=== PATIENT | male | born 1990 | race Asian ===

== ENCOUNTER 2025-04-14 12:04 | Emergency (ER) | payer OTHER, SELFPAY ==
[2025-04-14 12:10] VITALS: BP 129/74; PULSE 68; RESP 13; TEMP 36.3; O2SAT 100; BMI 25.1
--- NOTE | 2025-04-14 12:25 | DI.RAD.S_ITS ---
PROCEDURE: XR HAND RT MIN 3V INDICATIONS: injury TECHNIQUE: 3 views of the hand(s) acquired. COMPARISON: None. FINDINGS: Bones: No fractures or dislocations. Carpal bones are normally aligned. No suspicious bony lesions. Soft tissues: Generalized soft tissue swelling is seen. IMPRESSION: Soft tissue swelling is seen, without an acute bony abnormality seen by plain film. If there is point tenderness (or other clinical suspicion for a fracture not seen on these images) then a dedicated CT or a short-term followup plain film series could be considered for further evaluation, as clinically appropriate. Dictated by: Andrei Biggs M.D. on 04/14/2025 at 12:09 Approved by: Andrei Biggs M.D. on 04/14/2025 at 12:10
[2025-04-14] MEDS: TET,DIPH,PERTUSS(ACELL),VAC/PF 0.5 ML SYRINGE IM (12:38)
[2025-04-14] MEDS: LIDOCAINE 2% W/EPI INJ 10 ML VIAL INJ (13:38)
--- NOTE | 2025-04-14 13:56 | ED.WOUNDLAC ---
HPI - Wound/Laceration <Xiomy Peters PA-C - Last Filed: 04/14/25 15:16> General Chief Complaint: Wound/Laceration Stated Complaint: Rt hand laceration Time Seen by Provider: 04/14/25 12:25 Source: patient Mode of arrival: Ambulatory History of Present Illness HPI narrative: 34-year-old male presents to the ED with a right knuckle injury sustained accidentally when operating a cutting wheel. The cutting wire had plastic in it. Patient is complaining of pain at the site of injury. No numbness, tingling, weakness. Patient has full range of motion. Bleeding is controlled with pressure. Tetanus is not up-to-date. Related Data Allergies Allergy/AdvReac Type Severity Reaction Status Date / Time No Known Drug Allergies Allergy Verified 04/14/25 12:14 Review of Systems <Xiomy Peters PA-C - Last Filed: 04/14/25 15:16> Constitutional Constitutional: Denies chills, Denies fatigue, Denies fever(s), Denies frequent falls, Denies lethargy and Denies weakness Eyes Eyes: Denies change in vision, Denies eye discharge, Denies irritation and Denies loss of vision ENT Ears, Nose, Mouth, and Throat: Denies change in voice, Denies dizziness, Denies neck pain, Denies sore throat and Denies throat swelling Cardiovascular Cardiovascular: Denies chest pain, Denies irregular heart rhythm, Denies lightheadedness, Denies palpitations, Denies dyspnea, Denies dyspnea on exertion and Denies orthopnea Respiratory Respiratory: Denies cough, Denies dyspnea, Denies dyspnea on exertion and Denies wheezing Gastrointestinal Gastrointestinal: Denies abdominal pain, Denies change in bowel habits, Denies diarrhea, Denies nausea and Denies vomiting Musculoskeletal Musculoskeletal: Denies neck pain and Denies numbness Integumentary/Breasts Skin/Breast: Denies pruritus, Denies erythema, Denies rash and Reports wounds Neurologic Neurologic: Denies behavioral changes, Denies confusion, Denies dizziness, Denies frequent falls, Denies loss of vision, Denies numbness and Denies weakness Psychiatric Psychiatric: Denies anxiety, Denies behavioral changes, Denies confusion, Denies depression, Denies homicidal ideation and Denies suicidal ideation Endocrine Endocrine: Denies fatigue, Denies flushing and Denies palpitations Hematologic/Lymphatic Hematologic/Lymphatic: Denies easy bruising Allergic/Immunologic Allergic/Immunologic: Denies urticaria, Denies throat swelling and Denies wheezing Patient History <Xiomy Peters PA-C - Last Filed: 04/14/25 15:16> Social History Smoking Status: Unknown if ever smoked Smoking Status: Unknown if ever smoked Exam <Xiomy Peters PA-C - Last Filed: 04/14/25 15:16> Narrative Exam Narrative: Const General:?cooperative, healthy appearing and comfortable [facility] Head:?normal to inspection Ears:?hearing grossly normal bilaterally Nose:?external nose normal Face and sinus:?normal facial exam and sinuses nontender Mouth:?oral mucosae normal Throat:?posterior oropharynx normal Eyes General:?appearance normal, both eyes and all related structures Neck Neck:?normal visual inspection and no lymphadenopathy noted Resp Effort & Inspection:?normal respiratory effort Auscultation:?clear to auscultation bilaterally Cardio Rate:?regular rate Rhythm:?regular rhythm Integumentary There is a 1 cm linear laceration to the dorsal aspect of the right hand proximal to the 2nd MCP joint. Bleeding is controlled with pressure. There is some residue of the plastic at the edges of the laceration. No deeper structures injured Neuro General:?patient alert, patient awake and patient oriented x3 Initial Vital Signs Initial Vital Signs: Vital Signs Temperature 97.4 F L 04/14/25 12:10 Pulse Rate 68 04/14/25 12:10 Respiratory Rate 13 04/14/25 12:10 Blood Pressure 129/74 04/14/25 12:10 Pulse Oximetry 100 04/14/25 12:10 Oxygen Delivery Method Room Air 04/14/25 12:10 <Keaton Manzo MD - Last Filed: 04/14/25 19:13> Initial Vital Signs Initial Vital Signs: Vital Signs Temperature 97.4 F L 04/14/25 12:10 Pulse Rate 68 04/14/25 12:10 Respiratory Rate 13 04/14/25 12:10 Blood Pressure 129/74 04/14/25 12:10 Pulse Oximetry 100 04/14/25 12:10 Oxygen Delivery Method Room Air 04/14/25 12:10 Procedures <Xiomy Peters PA-C - Last Filed: 04/14/25 15:16> Laceration Repair Laceration 1: Site: hand Side (If applicable): right Size (cm): 1 Description: linear Depth: simple, single layer Local Anesthetic: lidocaine 2% and with epi Amount of anesthesia used (mL): 0.75 Pre-repair: wound explored, irrigated extensively (Plastic residue removed from the edges of the laceration) and deep structures intact Skin layer closed with: nylon Skin layer suture size: 5-0 Number of sutures: 3 Technique: simple, interrupted Course <Xiomy Peters PA-C - Last Filed: 04/14/25 15:16> Orders Ordered: ED Orders 04/14/25 12:25 XR hand RT min 3V Stat Discontinued Medications Diphtheria/Tetanus/Acell Pertussis (Tet,Diph,Pertuss(Acell),Vac/Pf 0.5 Ml Syringe) 0.5 ml IM .ONCE ONE Stop: 04/14/25 12:27 Last Admin: 04/14/25 12:38 Dose: 0.5 ml Documented By: LM Lidocaine/Epinephrine (Lidocaine 2% W/Epi Inj 10 Ml Vial) 10 ml INJ NOW ONE Stop: 04/14/25 13:35 Last Admin: 04/14/25 13:38 Dose: 10 ml Documented By: DKB Vital Signs Vital signs: Vital Signs - 8 hr 04/14/25 12:10 04/14/25 15:21 Temperature 97.4 F L Pulse Rate 68 65 Respiratory Rate 13 14 Blood Pressure 129/74 125/73 Pulse Oximetry 100 99 Oxygen Delivery Method Room Air Room Air <Keaton Manzo MD - Last Filed: 04/14/25 19:13> Orders Ordered: ED Orders 04/14/25 12:25 XR hand RT min 3V Stat Discontinued Medications Diphtheria/Tetanus/Acell Pertussis (Tet,Diph,Pertuss(Acell),Vac/Pf 0.5 Ml Syringe) 0.5 ml IM .ONCE ONE Stop: 04/14/25 12:27 Last Admin: 04/14/25 12:38 Dose: 0.5 ml Documented By: LM Lidocaine/Epinephrine (Lidocaine 2% W/Epi Inj 10 Ml Vial) 10 ml INJ NOW ONE Stop: 04/14/25 13:35 Last Admin: 04/14/25 13:38 Dose: 10 ml Documented By: DKB Vital Signs Vital signs: Vital Signs - 8 hr 04/14/25 12:10 04/14/25 15:21 Temperature 97.4 F L Pulse Rate 68 65 Respiratory Rate 13 14 Blood Pressure 129/74 125/73 Pulse Oximetry 100 99 Oxygen Delivery Method Room Air Room Air MDM - Wound/Laceration <Xiomy Peters PA-C - Last Filed: 04/14/25 15:16> [facility] Narrative Medical decision making narrative: 34-year-old male presents to the ED with a right knuckle injury sustained accidentally when operating a cutting wheel. X-ray was obtained to rule out bony injury. X-ray without acute bony abnormalities. There is some soft tissue swelling. Tetanus was updated. Laceration was cleaned and repaired with 3 sutures. Wound care instructions, suture removal, signs of infection discussed with patient. ED return precautions were discussed with patient. Patient verbalized understanding. Medical records reviewed: Yes <Keaton Manzo MD - Last Filed: 04/14/25 19:13> [facility] Narrative Medical decision making narrative: 34-year-old male presents to the ED with a right knuckle injury sustained accidentally when operating a cutting wheel. X-ray was obtained to rule out bony injury. X-ray without acute bony abnormalities. There is some soft tissue swelling. Tetanus was updated. Laceration was cleaned and repaired with 3 sutures. Wound care instructions, suture removal, signs of infection discussed with patient. ED return precautions were discussed with patient. Patient verbalized understanding. Medical records reviewed: Yes I was available for consult but did not actually see the patient. Discharge Plan Departure Patient Disposition: Home Clinical Impression: Laceration Instructions: DI for Laceration Repair Activity Restrictions/Additional Instructions: You were evaluated in the emergency department for a hand injury. The laceration was repaired with 3 sutures. The sutures will need to be removed in 7-10 days. You may return to the ED, go to a walk-in clinic or your PCP's office for suture removal. Your tetanus was updated today which is good for the next 10 years. Please keep the wound clean and dry for the 1st 28 hours, following which you may wash gently with soap and water. Please make sure to dry the wound prior to applying a bandage. Please do not keep any wet bandages on the wound for any length of time. Please watch for signs of infection including worsening redness, pain, swelling, warmth, discharge. Return to the ED if you note any signs of infection. Stand Alone Forms: Patient Portal/API
[2025-04-14 15:21] VITALS: BP 125/73; PULSE 65; RESP 14; O2SAT 99
== END 2025-04-14 15:23 | disposition home or self-care (01) ==
PROVIDERS: Emergency Provider Student in an Organized Health Care Education/Training Program
DX: S61.411A Laceration without foreign body of right hand, initial encounter (principal); W45.8XXA Other foreign body or object entering through skin, initial encounter; Z23 Encounter for immunization
CPT/HCPCS: 12001; 73130; 90471; 99283; 99284; 90715